=== PATIENT | male | born 1950 | race Caucasian/White ===

== ENCOUNTER 2017-09-30 21:45 | Inpatient (IN) | payer BC ==
[2017-09-30] MEDS ORDERED: ONDANSETRON 4 MG INJ IV (23:00)
[2017-09-30] MEDS ORDERED: NITROGLYCERIN (SL) 0.4 MG TAB SL (23:00)
[2017-09-30] MEDS ORDERED: ACETAMINOPHEN 325 MG TAB PO (23:00)
[2017-09-30] MEDS ORDERED: morphine 2 MG INJ IV (23:00)
[2017-09-30] MEDS ORDERED: NACL 0.9% 3 ML SYG IV (23:00)
[2017-09-30 23:32] LABS: ADD MAN DIFF? NO
[2017-09-30 23:36] LABS: WHITE BLOOD COUNT 7.9 10^3/ul (4.8-10.8)
[2017-09-30 23:36] LABS: BASOPHILS % 0.3 % (0.0-2.0); EOSINOPHILS % 0.3 % (0.0-7.0); HEMATOCRIT 44.8 % (42.0-52.0); HEMOGLOBIN 15.6 g/dl (14.0-18.0); LYMPHOCYTES # 1.4 10^3/ul (0.8-2.9); LYMPHOCYTES % 17.1 % (15.0-51.0); MEAN CORPUSCULAR HEMOGLOBIN 30.9 pg (29.0-33.0); MEAN CORPUSCULAR HGB CONC 34.8 g/dl (32.0-37.0); MEAN CORPUSCULAR VOLUME 88.7 fl (82.0-101.0); MEAN PLATELET VOLUME 11.8 fl (7.4-10.4); MONOCYTE # 0.5 10^3/ul (0.3-0.9); MONOCYTES % 5.8 % (0.0-11.0); NEUTROPHILS % 76.2 % (39.0-77.0); PLATELET COUNT 183 10^3/UL (140-415); RED BLOOD COUNT 5.05 10^6/ul (4.70-6.10); RED CELL DISTRIBUTION WIDTH 12.7 % (11.5-14.5)
[2017-09-30 23:58] LABS: CREATINE KINASE 73 IU/L (23-200)
[2017-09-30 23:59] LABS: ALANINE AMINOTRANSFERASE 49 IU/L (13-69); ALBUMIN 4.8 g/dl (3.3-4.9); ALBUMIN/GLOBULIN RATIO 1.45; ALKALINE PHOSPHATASE 67 IU/L (42-121); ANION GAP 20 (8-16); ASPARTATE AMINO TRANSFERASE 34 IU/L (15-46); BILIRUBIN,INDIRECT 0.2 mg/dl (0-1.1); BILIRUBIN,TOTAL 0.2 mg/dl (0.2-1.3); BLOOD UREA NITROGEN 15 mg/dl (7-20); CALCIUM 9.4 mg/dl (8.4-10.2); CARBON DIOXIDE 27 mmol/L (21-31); CHLORIDE 100 mmol/L (97-110); CREATININE 0.82 mg/dl (0.61-1.24); GLUCOSE 152 mg/dl (70-220); POTASSIUM 4.1 mmol/L (3.5-5.1); SODIUM 143 mmol/L (135-144); TOTAL PROTEIN 8.1 g/dl (6.1-8.1)
[2017-10-01 00:08] LABS: CK INDEX 1.2
[2017-10-01 00:12] LABS: CK-MB 0.89 ng/ml (0.0-2.4); TROPONIN-I < 0.012 ng/ml (0.00-0.12)
[2017-10-01 09:04] LABS: ADD MAN DIFF? NO
[2017-10-01 09:10] LABS: BASOPHILS % 0.3 % (0.0-2.0); EOSINOPHILS # 0.2 10^3/ul (0.0-0.5); EOSINOPHILS % 2.1 % (0.0-7.0); HEMATOCRIT 44.3 % (42.0-52.0); HEMOGLOBIN 15.2 g/dl (14.0-18.0); LYMPHOCYTES # 1.9 10^3/ul (0.8-2.9); LYMPHOCYTES % 26.8 % (15.0-51.0); MEAN CORPUSCULAR HEMOGLOBIN 30.6 pg (29.0-33.0); MEAN CORPUSCULAR HGB CONC 34.3 g/dl (32.0-37.0); MEAN CORPUSCULAR VOLUME 89.3 fl (82.0-101.0); MEAN PLATELET VOLUME 11.8 fl (7.4-10.4); MONOCYTE # 0.6 10^3/ul (0.3-0.9); MONOCYTES % 8.2 % (0.0-11.0); NEUTROPHIL # 4.5 10^3/ul (1.6-7.5); NEUTROPHILS % 62.3 % (39.0-77.0); PLATELET COUNT 177 10^3/UL (140-415); RED BLOOD COUNT 4.96 10^6/ul (4.70-6.10); RED CELL DISTRIBUTION WIDTH 12.7 % (11.5-14.5)
[2017-10-01 09:10] LABS: WHITE BLOOD COUNT 7.2 10^3/ul (4.8-10.8)
[2017-10-01 09:27] LABS: CREATINE KINASE 119 IU/L (23-200)
[2017-10-01 09:33] LABS: ALANINE AMINOTRANSFERASE 46 IU/L (13-69); ALBUMIN 4.4 g/dl (3.3-4.9); ALBUMIN/GLOBULIN RATIO 1.62; ALKALINE PHOSPHATASE 58 IU/L (42-121); ANION GAP 18 (8-16); ASPARTATE AMINO TRANSFERASE 29 IU/L (15-46); BILIRUBIN,INDIRECT 0.2 mg/dl (0-1.1); BILIRUBIN,TOTAL 0.2 mg/dl (0.2-1.3); BLOOD UREA NITROGEN 19 mg/dl (7-20); CALCIUM 9.5 mg/dl (8.4-10.2); CARBON DIOXIDE 29 mmol/L (21-31); CHLORIDE 101 mmol/L (97-110); CHOL/HDL RATIO 4.4 RATIO; CHOLESTEROL 184 mg/dl (100-200); GLUCOSE 105 mg/dl (70-220); HDL CHOLESTEROL 41 mg/dl (30-78); LDL CHOLESTEROL,CALCULATED 101 mg/dl; MAGNESIUM 1.9 mg/dl (1.7-2.5); POTASSIUM 4.2 mmol/L (3.5-5.1); SODIUM 144 mmol/L (135-144); TOTAL PROTEIN 7.1 g/dl (6.1-8.1); TRIGLYCERIDES 210 mg/dl (0-149)
[2017-10-01 09:41] LABS: CK-MB 1.14 ng/ml (0.0-2.4); TROPONIN-I < 0.012 ng/ml (0.00-0.12)
[2017-10-01 10:13] LABS: HEMOGLOBIN A1C 5.6 % (0-5.9)
[2017-10-01] MEDS: HYDROCHLOROTHIAZIDE 25 MG TAB PO (10:48)
[2017-10-01] MEDS: METOPROLOL 50 MG TAB PO ×2 (10:48→20:40)
[2017-10-01] MEDS: VALSARTAN 80 MG TAB PO (10:48)
[2017-10-01] MEDS: ASPIRIN 81 MG TAB PO (10:48)
[2017-10-01] MEDS: SOD CHLORIDE 0.9% 1,000 ML IV ×2 (14:18)
[2017-10-01] MEDS ORDERED: hydrALAzine 20 MG INJ IV (15:00)
[2017-10-01 19:46] LABS: TROPONIN-I < 0.012 ng/ml (0.00-0.12)
[2017-10-01] MEDS: ATORVASTATIN 20 MG TAB PO (20:40)
[2017-10-02 01:16] LABS: TROPONIN-I 0.013 ng/ml (0.00-0.12)
[2017-10-02] MEDS: SOD CHLORIDE 0.9% 1,000 ML IV (04:55)
[2017-10-02 07:27] LABS: ADD MAN DIFF? NO
[2017-10-02 07:38] LABS: WHITE BLOOD COUNT 5.9 10^3/ul (4.8-10.8)
[2017-10-02 07:38] LABS: BASOPHILS % 0.3 % (0.0-2.0); EOSINOPHILS # 0.2 10^3/ul (0.0-0.5); HEMOGLOBIN 15.2 g/dl (14.0-18.0); LYMPHOCYTES % 33.7 % (15.0-51.0); MEAN CORPUSCULAR HEMOGLOBIN 31.4 pg (29.0-33.0); MEAN CORPUSCULAR HGB CONC 34.5 g/dl (32.0-37.0); MEAN CORPUSCULAR VOLUME 90.9 fl (82.0-101.0); MEAN PLATELET VOLUME 12.2 fl (7.4-10.4); MONOCYTE # 0.5 10^3/ul (0.3-0.9); MONOCYTES % 8.2 % (0.0-11.0); NEUTROPHIL # 3.2 10^3/ul (1.6-7.5); NEUTROPHILS % 54.5 % (39.0-77.0); PLATELET COUNT 169 10^3/UL (140-415); RED BLOOD COUNT 4.84 10^6/ul (4.70-6.10)
[2017-10-02 07:50] LABS: CHOL/HDL RATIO 4.5 RATIO; HDL CHOLESTEROL 40 mg/dl (30-78); LDL CHOLESTEROL,CALCULATED 95 mg/dl; TRIGLYCERIDES 228 mg/dl (0-149)
[2017-10-02 07:50] LABS: CHOLESTEROL 181 mg/dl (100-200)
[2017-10-02 07:56] LABS: ALANINE AMINOTRANSFERASE 44 IU/L (13-69); ALBUMIN 4.1 g/dl (3.3-4.9); ALKALINE PHOSPHATASE 60 IU/L (42-121); ANION GAP 17 (8-16); ASPARTATE AMINO TRANSFERASE 30 IU/L (15-46); BILIRUBIN,INDIRECT 0.3 mg/dl (0-1.1); BILIRUBIN,TOTAL 0.3 mg/dl (0.2-1.3); BLOOD UREA NITROGEN 20 mg/dl (7-20); CALCIUM 9.1 mg/dl (8.4-10.2); CARBON DIOXIDE 27 mmol/L (21-31); CHLORIDE 101 mmol/L (97-110); CREATININE 0.95 mg/dl (0.61-1.24); GLUCOSE 105 mg/dl (70-220); POTASSIUM 4.2 mmol/L (3.5-5.1); SODIUM 141 mmol/L (135-144); TOTAL PROTEIN 7.5 g/dl (6.1-8.1)
[2017-10-02] MEDS: HYDROCHLOROTHIAZIDE 25 MG TAB PO (09:24)
[2017-10-02] MEDS: ASPIRIN 81 MG TAB PO (09:24)
[2017-10-02] MEDS: METOPROLOL 50 MG TAB PO (09:25)
[2017-10-02] MEDS: VALSARTAN 80 MG TAB PO (09:25)
[2017-10-02] MEDS: REGADENOSON 0.4 MG/5 ML SYG (12:30)
== END 2017-10-02 15:50 | disposition home or self-care (01) | DRG 313 ==
LOC: MS4 21:45
DX: R07.89 Other chest pain (principal); I10 Essential (primary) hypertension; E78.5 Hyperlipidemia, unspecified; R51 Headache; Z87.891 Personal history of nicotine dependence
CPT/HCPCS: 78452; 80053; 80061; 82550; 82553; 83036; 83735; 84443; 84484; 85025; 93017

== ENCOUNTER → 2018-06-22 | Outpatient (CLI) | payer MEDICARE, BC | END | disposition home or self-care (01) | LOC: RAD 11:38 | DX: M54.5 Low back pain (principal) | CPT/HCPCS: 72100 ==

== ENCOUNTER → 2018-08-26 | Outpatient (CLI) | payer MEDICARE, BC ==
[~2018-08-26] MED LIST: IOHEXOL 100 ML; METOPROLOL 5 MG INJ; SOD CHLORIDE 0.9% 100 ML
[2018-08-26] MEDS: METOPROLOL 5 MG INJ (11:25)
== END | disposition home or self-care (01) ==
LOC: C/S 09:43
DX: R94.39 Abnormal result of other cardiovascular function study (principal); R07.9 Chest pain, unspecified; R06.02 Shortness of breath
CPT/HCPCS: 75571; 75574